=== PATIENT | female | born 1990 | race African-American/Black ===

== ENCOUNTER 2024-09-09 12:15 | Emergency (ER) | payer SELFPAY ==
--- OUTSIDE RECORDS SUMMARY | 2024-09-09 12:17 | XMS REPORT | Continuity of Care Document ---
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
--- NOTE | 2024-09-09 13:48 | RAD REPORT ---
EXAMINATION: US RIGHT UPPER EXTREMITY VENOUS DOPPLER CLINICAL INDICATION: PAIN RIGHT TECHNIQUE: Complete bilateral duplex sonography of the RIGHT upper extremity veins was performed. The examination included compression for vein patency, color Doppler imaging and flow augmentation in response to distal compression of the internal jugular, brachiocephalic, subclavian, axillary, brachi al, radial, ulnar, cephalic and basilic veins. COMPARISON: No prior exam. FINDINGS: Duplex sonography testing of the veins of the RIGHT upper extremity was performed. Color flow imaging shows all veins to be compressible with [id number] color filling. Pulsatile and phasic flow is present within all upper extremity deep and superficial veins examined. IMPRESSION: There is no deep vein or superficial vein thrombosis.
--- NOTE | 2024-09-09 13:57 | ER ---
Nurse's Notes [facility] Name: Sophia Vo Age: 33 yrs Sex: Female : 1990 Arrival Date: 09/09/2024 Time: 12:15 Bed 10 Private MD: Diagnosis: Pain associated with control implant Presentation: 09/09 12:55 Chief complaint: Patient states: right arm pain and is locking up, at the site of her iw control implant X1-2 weeks. Coronavirus screen: At this time, the client does not indicate any symptoms associated with coronavirus-19. Ebola Screen: No symptoms or risks identified at this time. Initial Sepsis Screen: Does the patient meet any 2 criteria? No. Patient's initial sepsis screen is negative. Does the patient have a suspected source of infection? No. Patient's initial sepsis screen is negative. Risk Assessment: Do you want to hurt yourself or someone else? Patient reports no desire to harm self or others. Onset of symptoms was September 02, 2024. 12:55 Method Of Arrival: Ambulatory iw 12:55 Acuity: STAN 4 iw Historical: - Allergies: 12:56 No Known Allergies; iw - Family history:: not pertinent. Screenin:55 [facility] ED Fall Risk Assessment (Adult) History of falling in the last 3 months, iw including since admission No falls in past 3 months (0 pts) Confusion or Disorientation No (0 pts) Intoxicated or Sedated No (0 pts) Impaired Gait No (0 pts) Mobility Assist Device Used No (0 pt) Altered Elimination No (0 pt) Score/Fall Risk Level 0 - 2 = Low Risk Oriented to surroundings, Maintained a safe environment. Abuse screen: Denies threats or abuse. Denies injuries from another. Nutritional screening: No deficits noted. Nutritional screening: No deficits noted. Nutritional screening: No deficits noted. Tuberculosis screening: No symptoms or risk factors identified. Assessment: 12:55 General: Appears in no apparent distress. Behavior is calm, cooperative. Pain: iw Complains of pain in right bicep and right antecubital area. Neuro: Level of Consciousness is awake, alert, obeys commands, Oriented to person, place, time, situation, Moves all extremities. Full function. Respiratory: Respiratory effort is even, unlabored, Respiratory pattern is regular, symmetrical. Vital Signs: 12:56 BP 126 / 97; Pulse 78; Resp 16; Temp 98.1; Pulse Ox 100% on R/A; Pain 8/10; iw 12:56 Pain Scale: Adult iw ED Course: 12:17 Patient arrived in ED. im 12:18 Cesar Iglesias MD is Attending Physician. rt 12:55 Olesya Saucedo, RN is Primary Nurse. iw 12:56 Triage completed. iw 13:35 UPPER EXTREMITY VENOUS UNILATE In Process Unspecified. EDMS 14:28 No provider procedures requiring assistance completed. Patient did not have IV access ss during this emergency room visit. Administered Medications: No medications were administered Medication: 12:55 VIS not applicable for this client. iw Outcome: 13:57 Discharge ordered by MD. rt 14:28 Discharged to home ambulatory, ss 14:28 Condition: good 14:28 Discharge instructions given to patient, Instructed on discharge instructions, follow up and referral plans. Demonstrated understanding of instructions, follow-up care, 14:29 Patient left the ED. ss Signatures: Dispatcher [employer] EDMS Olesya Saucedo, CAROLINE VELAZQUEZ iw Ksenia Lucas RN RN Cesar Iglesias MD MD rt Yudith Villafana im
--- NOTE | 2024-09-09 13:57 | EDPHYS ---
Physician Documentation [facility] Name: Sophia Vo Age: 33 yrs Sex: Female : 1990 Arrival Date: 09/09/2024 Time: 12:15 Bed 10 Private MD: ED Physician Cesar Iglesias HPI: 09/09 12:49 This 33 yrs old Black Female presents to ER via Unassigned with complaints of Arm Pain rt - right. 12:49 Patient presents to the ED with a pain to the right upper extremity starting yesterday. rt She reports a pain to the Nexplanon implantation site, states that has been in place for about 6 to 7 years. Denies any swelling to the area, denies trauma, erythema. Denies other acute complaints at this time, symptoms are moderate severity, aching in nature, nonradiating, no other aggravating or alleviating factors.. Historical: - Allergies: 12:56 No Known Allergies; iw - Family history:: not pertinent. ROS: 12:49 Constitutional: Negative for fever, chills, and weight loss, Skin: Negative for injury, rt rash, and discoloration, Neuro: Negative for headache, weakness, numbness, tingling, and seizure, 12:49 MS/extremity: Positive for pain, Negative for injury or acute deformity, Exam: 12:49 Constitutional: This is a well developed, well nourished patient who is awake, alert, rt and in no acute distress. Skin: Warm, dry with normal turgor. Normal color with no rashes, no lesions, and no evidence of cellulitis. Neuro: Awake and alert, GCS 15, oriented to person, place, time, and situation. Cranial nerves II-XII grossly intact. Motor strength 5/5 in all extremities. Sensory grossly intact. Cerebellar exam normal. Normal gait. Psych: Awake, alert, with orientation to person, place and time. Behavior, mood, and affect are within normal limits. 12:49 Musculoskeletal/extremity: Tenderness to the right upper arm, no appreciable swelling, no deformities noted, no other focal areas of tenderness, pulses, motor, sensation are intact. Vital Signs: 12:56 BP 126 / 97; Pulse 78; Resp 16; Temp 98.1; Pulse Ox 100% on R/A; Pain 8/10; iw 12:56 Pain Scale: Adult iw MDM: 12:41 Medical Screening Exam initiated rt 13:59 Differential diagnosis: DVT, pain associate with Nexplanon. Data reviewed: vital signs, rt nurses notes, radiologic studies. I considered the following discharge prescriptions or medication management in the emergency department Patient declined any pain medications. Test considered but Not performed: Other Details No trauma, x-rays were not indicated, stable vital signs, no signs of cellulitis, labs not decayed. Counseling: I had a detailed discussion with the patient and/or guardian regarding the historical points, exam findings, and any diagnostic results supporting the discharge/admit diagnosis, radiology results, the need for outpatient follow up, to return to the emergency department if symptoms worsen or persist or if there are any questions or concerns that arise at home. Response to treatment: the patient's symptoms have mildly improved after treatment. 09/09 12:57 Order name: UPPER EXTREMITY VENOUS UNILATE; Complete Time: 13:50 EDMS Administered Medications: No medications were administered Disposition Summary: 09/09/24 13:57 Discharge Ordered Notes: Location: Home rt Problem: new rt Symptoms: are unchanged rt Condition: Stable rt Diagnosis - Pain associated with control implant rt Followup: rt - With: Private Physician - When: 2 - 3 days - Reason: Discharge Instructions: - Discharge Summary Sheet rt - Musculoskeletal Pain rt Forms: - Medication Reconciliation Form rt - Antibiotic Education rt - Prescription Opioid Use rt - Patient Portal Instructions rt - Leadership Thank You Letter rt Signatures: Dispatcher [employer] Olesya Churchill RN RN iw [place], Ryan, MD MD rt Corrections: (The following items were deleted from the chart) 12:57 12:50 Extremity Venous Uni [email or web address] ordered. EDMS EDMS
[2024-09-09 14:33] VITALS: BP 126/97; TEMP 98.1; O2SAT 100
== END 2024-09-09 14:29 | disposition home or self-care (01) ==
LOC: ER 12:15
DX: T85.848A Pain due to other internal prosthetic devices, implants and grafts, initial encounter (principal)
CPT/HCPCS: 93971